=== PATIENT | male | born 1955 | race Caucasian/White ===

== ENCOUNTER 2018-08-19 10:17 | Day surgery (SDC) | payer MEDICARE, MEDICAID ==
[2018-08-18 13:33] VITALS: BMI 21.7
--- NOTE | 2018-08-19 14:08 | OP ---
DATE OF PROCEDURE: 08/19/2018 PROCEDURE PERFORMED: Aborted colonoscopy. PREOPERATIVE DIAGNOSES: Colon cancer screening and chronic constipation. DESCRIPTION OF PROCEDURE: Informed consent was obtained. The patient was sedated with total intravenous anesthesia. The rectal exam was performed and revealed some soft stool in the rectal vault. The colonoscope was advanced above the rectum. Again, there was poor prep and the mucosa could not be visualized. The procedure was aborted. IMPRESSION: Screening colonoscopy aborted due to inadequate colon prep. RECOMMENDATIONS: Reschedule colonoscopy with a better prep. Alternative screening method could be considered in this patient such as Cologuard or Hemoccult cards. Job ID: [id number]
[2018-08-19] MEDS ORDERED: PROPOFOL 200 MG/20 ML VIAL ONE (21:23)
[2018-08-19] MEDS ORDERED: Lidocaine 1% PF 5 ML VIAL ONE (21:23)
== END 2018-08-20 13:45 | disposition home or self-care (01) ==
LOC: SDC 10:17
PROVIDERS: ATTEND Internal Medicine Gastroenterology
PROC: 0DJD8ZZ Inspection of Lower Intestinal Tract, Via Natural or Artificial Opening Endoscopic (ICD-10-PCS; principal; 2018-08-19)
DX: K59.09 Other constipation (principal)
CPT/HCPCS: J2001; J2704